=== PATIENT | male | born 1995 | race Caucasian/White ===

== ENCOUNTER 2018-11-05 10:07 | Emergency (ER) | payer OTHER ==
[2018-11-05] MEDS: ONDANSETRON 4 MG INJ IV ×2 (10:26→12:50)
[2018-11-05] MEDS: HYDROmorphONE 1 MG/ML SYG IV ×2 (10:27→11:21)
[2018-11-05] MEDS: CEFAZOLIN 2 GM/50 ML (PMX) 50 ML IVPB (10:28)
[2018-11-05] MEDS: DIPHTH/TET/ACEL PERTUSS (ADULT) 0.5 ML VIAL IM* (10:32)
[2018-11-05 10:34] LABS: ADD MAN DIFF? NO
[2018-11-05] MEDS: SOD CHLORIDE 0.9% 500 ML IV (10:37)
[2018-11-05 10:41] LABS: BASOPHIL # 0.1 10^3/ul (0.0-0.1); BASOPHILS % 0.6 % (0.0-2.0); EOSINOPHILS # 0.1 10^3/ul (0.0-0.5); EOSINOPHILS % 1.4 % (0.0-7.0); HEMATOCRIT 46.7 % (42.0-52.0); HEMOGLOBIN 15.2 g/dl (14.0-18.0); LYMPHOCYTES # 3.4 10^3/ul (0.8-2.9); LYMPHOCYTES % 39.7 % (15.0-51.0); MEAN CORPUSCULAR HEMOGLOBIN 27.8 pg (29.0-33.0); MEAN CORPUSCULAR HGB CONC 32.5 g/dl (32.0-37.0); MEAN CORPUSCULAR VOLUME 85.5 fl (82.0-101.0); MEAN PLATELET VOLUME 10.9 fl (7.4-10.4); MONOCYTE # 0.7 10^3/ul (0.3-0.9); MONOCYTES % 8.2 % (0.0-11.0); NEUTROPHIL # 4.3 10^3/ul (1.6-7.5); NEUTROPHILS % 49.8 % (39.0-77.0); PLATELET COUNT 240 10^3/UL (140-415); RED BLOOD COUNT 5.46 10^6/ul (4.70-6.10); RED CELL DISTRIBUTION WIDTH 11.9 % (11.5-14.5)
[2018-11-05 10:41] LABS: WHITE BLOOD COUNT 8.7 10^3/ul (4.8-10.8)
[2018-11-05] MEDS: HYDROmorphONE 0.5 MG/0.5 ML SYG IV (10:41)
[2018-11-05 10:58] LABS: ANION GAP 20 (5-13); BLOOD UREA NITROGEN 20 mg/dl (7-20); CALCIUM 9.3 mg/dl (8.4-10.2); CARBON DIOXIDE 19 mmol/L (21-31); CHLORIDE 105 mmol/L (97-110); CREATININE 1.05 mg/dl (0.61-1.24); Estimated GFR > 60 mL/min (>60); GLUCOSE 118 mg/dl (70-220); POTASSIUM 3.4 mmol/L (3.5-5.1); SODIUM 144 mmol/L (135-144)
[2018-11-05 11:00] LABS: INR 0.83; PARTIAL THROMBOPLASTIN TIME 25.9 Sec (23.0-35.0); PROTIME 11.5 Sec (11.9-14.9); PT RATIO 0.9
[2018-11-05] MEDS: LIDOCAINE 1% (MPF) 5 ML VIAL INJ (11:21)
== END 2018-11-05 14:03 | disposition home or self-care (01) ==
LOC: E/R 10:07
DX: S68.113A Complete traumatic metacarpophalangeal amputation of left middle finger, initial encounter (principal); R40.2142 Coma scale, eyes open, spontaneous, at arrival to emergency department; R40.2362 Coma scale, best motor response, obeys commands, at arrival to emergency department; R40.2252 Coma scale, best verbal response, oriented, at arrival to emergency department; S68.117A Complete traumatic metacarpophalangeal amputation of left little finger, initial encounter; M79.645 Pain in left finger(s); W22.8XXA Striking against or struck by other objects, initial encounter; Y92.9 Unspecified place or not applicable; Z23 Encounter for immunization
CPT/HCPCS: 29125; 36415; 73130-LT; 80048; 85025; 85610; 85730; 90471; 90715; 96374; 96375; 96376; 99284-25